=== PATIENT | male | born 1955 | race Caucasian/White ===

== ENCOUNTER 2020-04-01 12:49 | Emergency (ER) | payer MEDICARE ==
[~2020-04-01] VITALS: Ht 182.9 cm; Wt 105.0 kg
--- NOTE | 2020-04-01 12:58 | NUR ---
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
[2020-04-01] MEDS ORDERED: MECLIZINE CHEWABLE 25 MG TAB ONE (13:25)
[2020-04-01] MEDS ORDERED: SODIUM CHLORIDE 0.9% 1,000ML IVBOLUS ONE (13:30)
[2020-04-01] MEDS ORDERED: SODIUM CHLORIDE FLUSH 10ML SYR IVF ONE (13:30)
[2020-04-01] MEDS ORDERED: MECLIZINE CHEWABLE 25 MG TAB PO ONE (13:30)
--- NOTE | 2020-04-01 13:30 | NUR ---
PT MEDICATED PER APR. PT TO CT. WILL START PIV WHEN PT RETURNS.
[2020-04-01 13:35] LABS: BASOPHILS % (AUTO) 1 % (0-1); EOSINOPHILS % (AUTO) 3 % (1-7); LYMPHOCYTES % (AUTO) 27 % (22-44); MEAN CORPUSCULAR HGB CONC 34.7 g/dL (33.2-36.2); MEAN PLATELET VOLUME 7.7 fL (7.4-10.4); MONOCYTES % (AUTO) 12 % (2-9); NEUTROPHILS % (AUTO) 57 % (42-75); PLATELET COUNT 130 x10^3/uL (130-400); RED BLOOD COUNT 4.39 x10^6/uL (4.38-5.82); RED CELL DISTRIBUTION WIDTH 13.5 % (9.4-14.8)
[2020-04-01 13:36] LABS: MD NO
[2020-04-01 13:45] LABS: ALBUMIN 3.8 g/dL (3.4-5.0); ANION GAP 8 mmol/L (5-15); CALCIUM 9.2 mg/dL (8.5-10.1); CHLORIDE 113 mmol/L (98-107); CREATININE 0.92 mg/dL (0.7-1.3)
[2020-04-01 13:55] VITALS: BP 133/87
[2020-04-01] MEDS ORDERED: DIAZEPAM 5 MG TABLET ONE (14:14)
--- NOTE | 2020-04-01 14:28 | NUR ---
PT TO MRI
[2020-04-01] MEDS ORDERED: DIAZEPAM 5 MG TABLET PO ONE (14:30)
== END 2020-04-01 15:51 | disposition home or self-care (01) ==
LOC: ED 15:40
DX: R42 Dizziness and giddiness (principal); I10 Essential (primary) hypertension; R51.9 Headache, unspecified; R00.1 Bradycardia, unspecified
CPT/HCPCS: 36415; 70450; 70551; 80048; 82040; 85025; 93005; 96360; 99285; J7030